=== PATIENT | female | born 1955 | race Caucasian/White ===

== ENCOUNTER → 2017-09-18 | Outpatient (CLI) | payer MEDICARE, BC ==
[~2017-09-18] MED LIST: LIDOCAINE 1% MDV 20ML VIAL As Ordered ONE
--- NOTE | 2017-09-18 17:34 | REP ---
ULTRASOUND GUIDED LEFT THYROID BIOPSY: The procedure was performed under the direct supervision of Dr. Noble. The risks and benefits of the procedure were explained to the patient and informed consent was obtained. The left thyroid nodule was localized using ultrasound guidance. The skin was prepped and draped in a sterile fashion. 1% Xylocaine was used as a local anesthetic. Using ultrasound guidance four fine-needle aspirations were obtained using a 25-gauge needles. The patient tolerated the procedure well and there were no immediate complications. After the appropriate amount of monitored convalescence the patient was discharged from the department. Reviewed by MATT Lugo 09/20/2017 04:32 PEdited and Signed by Ryne Noble MD 09/20/2017 04:51 P
== END ==
LOC: M RADPRO 12:05
PROVIDERS: ATTEND Otolaryngology
DX: E04.2 Nontoxic multinodular goiter (principal); R05 Cough; R49.0 Dysphonia; K21.9 Gastro-esophageal reflux disease without esophagitis; J45.901 Unspecified asthma with (acute) exacerbation; J47.9 Bronchiectasis, uncomplicated; J34.89 Other specified disorders of nose and nasal sinuses; R06.00 Dyspnea, unspecified; Z79.818 Long term (current) use of other agents affecting estrogen receptors and estrogen levels; Z79.899 Other long term (current) drug therapy; Z88.0 Allergy status to penicillin; Z88.1 Allergy status to other antibiotic agents; Z88.8 Allergy status to other drugs, medicaments and biological substances

== ENCOUNTER → 2018-04-23 | Outpatient (CLI) | payer MEDICARE, BC ==
[~2018-04-23] MED LIST changes: +LIDOCAINE 1% MDV 20ML VIAL As Ordered; -LIDOCAINE 1% MDV 20ML VIAL As Ordered ONE
== END ==
LOC: M RADPRO 10:44
DX: R94.5 Abnormal results of liver function studies (principal); Z79.899 Other long term (current) drug therapy; Z88.1 Allergy status to other antibiotic agents; Z88.5 Allergy status to narcotic agent; Z88.8 Allergy status to other drugs, medicaments and biological substances
CPT/HCPCS: 47000

== ENCOUNTER → 2018-10-01 | Outpatient (CLI) | payer MEDICARE, BC | LOC: M RAD 12:14 | DX: E04.2 Nontoxic multinodular goiter (principal) | CPT/HCPCS: 76536 ==

== ENCOUNTER → 2018-10-30 | Outpatient (REF) | payer MEDICARE, BC ==
[2018-10-30 12:28] LABS: BASO # 0.1 10^3/uL (0.0-0.2); BASO % 0.9 % (0.0-1.0); EOS # 0.3 10^3/uL (0.0-0.50); EOS % 3.2 % (0.0-3.0); HEMOGLOBIN 13.1 g/dl (12.0-15.5); LYMPH # 1.4 10^3/uL (1.5-4.5); LYMPH % 16.6 % (24.0-44.0); MEAN CORPUSCULAR HEMOGLOBIN 30.1 pg (27.0-33.0); MEAN CORPUSCULAR HGB CONC 32.8 g/dl (32.0-36.5); MONO # 0.8 10^3/uL (0.0-0.8); NEUTROPHILS # 5.6 10^3/uL (1.8-7.7); NEUTROPHILS % 68.8 % (36.0-66.0); PLATELET COUNT, AUTOMATED 280 10^3/uL (150-450); RED BLOOD COUNT 4.35 10^6/uL (4.00-5.40); WHITE BLOOD COUNT 8.1 10^3/uL (4.0-10.0)
[2018-10-30 13:12] LABS: ALBUMIN 3.5 GM/DL (3.2-5.2); ALT/SGPT 44 U/L (12-78); BILIRUBIN,TOTAL 0.4 MG/DL (0.2-1.0); BLOOD UREA NITROGEN 16 MG/DL (7-18); C REACTIVE PROTEIN QUANTITATIV 1.75 MG/DL (0.00-0.30); CALCIUM LEVEL 9.3 MG/DL (8.8-10.2); CARBON DIOXIDE LEVEL 31 MEQ/L (21-32); CHLORIDE LEVEL 103 MEQ/L (98-107); GLOMERULAR FILTRATION RATE 59.8 (>45); GLUCOSE, FASTING 77 MG/DL (70-100); POTASSIUM SERUM 3.8 MEQ/L (3.5-5.1); RHEUMATOID FACTOR QUANT < 10.0 IU/ML (<15.0); SODIUM LEVEL 141 MEQ/L (136-145); TOTAL PROTEIN 6.7 GM/DL (6.4-8.2)
[2018-10-30 13:46] LABS: ERYTHROCYTE SEDIMENTATION RATE 56 mm/hr (0-30)
[2018-10-31 09:55] LABS: HEPATITIS B SURFACE ANTIGEN NEGATIVE (NEGATIVE)
[2018-10-31 10:23] LABS: HEPATITIS C VIRUS ABY INDEX 0.1 INDEX (<0.8)
[2018-11-01 00:07] LABS: ANA (HEP2) Negative (.); CYCLIC CITRULLINATED PEPTIDE 7 units (0-19)
== END ==
LOC: M SFHCPLAZ 10:38
PROVIDERS: ATTEND Internal Medicine Rheumatology
DX: M06.9 Rheumatoid arthritis, unspecified (principal)

== ENCOUNTER → 2019-01-29 | Outpatient (REF) | payer MEDICARE, BC ==
[2019-01-29 12:34] LABS: BASO # 0.1 10^3/uL (0.0-0.2); BASO % 0.8 % (0.0-1.0); EOS # 0.2 10^3/uL (0.0-0.50); EOS % 2.4 % (0.0-3.0); LYMPH # 1.4 10^3/uL (1.5-4.5); LYMPH % 17.3 % (24.0-44.0); MEAN CORPUSCULAR HEMOGLOBIN 29.6 pg (27.0-33.0); MEAN CORPUSCULAR HGB CONC 31.6 g/dl (32.0-36.5); MEAN CORPUSCULAR VOLUME 93.6 fl (80.0-96.0); MONO # 0.6 10^3/uL (0.0-0.8); MONO % 7.8 % (0.0-5.0); NEUTROPHILS # 5.5 10^3/uL (1.8-7.7); NEUTROPHILS % 71.2 % (36.0-66.0); PLATELET COUNT, AUTOMATED 292 10^3/uL (150-450); RED BLOOD COUNT 4.06 10^6/uL (4.00-5.40); WHITE BLOOD COUNT 7.8 10^3/uL (4.0-10.0)
[2019-01-29 12:53] LABS: ALBUMIN 3.4 GM/DL (3.2-5.2); ALT/SGPT 40 U/L (12-78); BILIRUBIN,TOTAL 0.3 MG/DL (0.2-1.0); BLOOD UREA NITROGEN 19 MG/DL (7-18); C REACTIVE PROTEIN QUANTITATIV 0.57 MG/DL (0.00-0.30); CALCIUM LEVEL 9.5 MG/DL (8.8-10.2); CARBON DIOXIDE LEVEL 33 MEQ/L (21-32); CHLORIDE LEVEL 106 MEQ/L (98-107); CREATININE FOR GFR 0.96 MG/DL (0.55-1.30); GLOMERULAR FILTRATION RATE > 60.0 (>45); GLUCOSE, FASTING 81 MG/DL (70-100); POTASSIUM SERUM 3.9 MEQ/L (3.5-5.1); SODIUM LEVEL 143 MEQ/L (136-145); TOTAL PROTEIN 6.1 GM/DL (6.4-8.2)
[2019-01-29 13:09] LABS: ERYTHROCYTE SEDIMENTATION RATE 38 mm/hr (0-30)
== END ==
LOC: M SFHCPLAZ 09:29
PROVIDERS: ATTEND Internal Medicine Rheumatology
DX: M06.9 Rheumatoid arthritis, unspecified (principal)
CPT/HCPCS: 36415; 80053; 85025; 85652; 86140; G0463

== ENCOUNTER → 2019-05-16 | Outpatient (CLI) | payer MEDICARE, BC ==
--- NOTE | 2019-05-16 13:17 | REP ---
THYROID ULTRASOUND: Real-time sonographic evaluation of the thyroid performed. Comparison is made with prior study of 10/01/2018. The right lobe of the thyroid measures 3.6 x 1.5 x 1.2 cm and left lobe 4.8 x 1.7 x 1.9 cm. There is diffuse heterogeneous nodular pattern to the parenchyma. Once again, there is a complex nodule in the mid right lobe 1 cm in diameter. A 5 mm cyst seen in the right lower pole. Complex nodule near the left isthmus measures 1.2 x 0.8 x 0.6 cm. There is adjacent complex nodule in the left mid aspect 7 x 10 x 6 mm. A complex nodule in the left lower pole is again seen 1.7 x 1.2 x 0.9 cm. These findings are essentially unchanged. IMPRESSION: Stable examination with no change in bilateral nodules compared to the 10/01/2018 exam. Electronically Signed by Tanner Champion MD 05/16/2019 02:01 P
== END ==
LOC: M RAD 10:25
PROVIDERS: ATTEND Otolaryngology
DX: E04.2 Nontoxic multinodular goiter (principal)

== ENCOUNTER → 2019-11-20 | Outpatient (REF) | payer MEDICARE, BC ==
[2019-11-20 13:06] LABS: BASO % 0.6 % (0.0-1.0); EOS # 0.4 10^3/uL (0.0-0.5); EOS % 5.9 % (0.0-3.0); HEMATOCRIT 37.6 % (36.0-47.0); HEMOGLOBIN 11.6 g/dl (12.0-15.5); LYMPH # 0.7 10^3/uL (1.5-5.0); LYMPH % 9.6 % (24.0-44.0); MEAN CORPUSCULAR HEMOGLOBIN 28.4 pg (27.0-33.0); MEAN CORPUSCULAR HGB CONC 30.9 g/dl (32.0-36.5); MEAN CORPUSCULAR VOLUME 92.2 fl (80.0-96.0); MONO # 1.2 10^3/uL (0.0-0.8); MONO % 17.6 % (0.0-5.0); NEUTROPHILS # 4.5 10^3/uL (1.5-8.5); NEUTROPHILS % 65.9 % (36.0-66.0); PLATELET COUNT, AUTOMATED 296 10^3/uL (150-450); RED BLOOD COUNT 4.08 10^6/uL (4.00-5.40); WHITE BLOOD COUNT 6.8 10^3/uL (4.0-10.0)
[2019-11-20 13:35] LABS: ALBUMIN 2.8 GM/DL (3.2-5.2); ALT/SGPT 20 U/L (12-78); BILIRUBIN,TOTAL 0.4 MG/DL (0.2-1.0); BLOOD UREA NITROGEN 9 MG/DL (7-18); C REACTIVE PROTEIN QUANTITATIV 7.49 MG/DL (0.00-0.30); CALCIUM LEVEL 8.6 MG/DL (8.8-10.2); CARBON DIOXIDE LEVEL 31 MEQ/L (21-32); CHLORIDE LEVEL 103 MEQ/L (98-107); CREATININE FOR GFR 0.82 MG/DL (0.55-1.30); GLOMERULAR FILTRATION RATE > 60.0 (>45); GLUCOSE, FASTING 84 MG/DL (70-100); POTASSIUM SERUM 3.9 MEQ/L (3.5-5.1); SODIUM LEVEL 139 MEQ/L (136-145); TOTAL PROTEIN 6.1 GM/DL (6.4-8.2)
[2019-11-20 13:43] LABS: ERYTHROCYTE SEDIMENTATION RATE 65 mm/hr (0-30)
== END ==
LOC: M SFHCRHEU 10:12
PROVIDERS: ATTEND Internal Medicine
DX: M06.09 Rheumatoid arthritis without rheumatoid factor, multiple sites (principal)
CPT/HCPCS: 36415; 80053; 85025; 85652; 86140; G0463

== ENCOUNTER → 2019-11-22 | Outpatient (CLI) | payer MEDICARE, BC ==
--- NOTE | 2019-11-25 13:35 | REP ---
Whole breast sonography left breast. History: 6 month followup left breast findings on mammogram May 22, 2019. The report of the mammogram describes a tiny nodular opacity with well-circumscribed margins in the upper outer quadrant of the left breast, BIRADS 3 probably benign three-dimensional whole breast ultrasound recommended. Whole breast sonographic findings: The left breast is examined sonographically. Heterogeneous fibroglandular background echotexture is seen. Multiple cystic structures are seen. No sonographically suspicious abnormality is observed. No acoustic shadowing, mass or architectural distortion is seen. There are anechoic structures consistent with simple cysts located and measured as follows: 2 o'clock, 3 cm from the nipple, 7 mm in greatest diameter 3 o'clock, 1 cm from the nipple, 4 mm 3 o'clock, 2 cm from the nipple, 8 mm 9 o'clock, 6 mm from the nipple, 4 mm 11 o'clock, 3 cm from the nipple, 5 mm Also noted is a normal-appearing lymph node in the axilla. Impression: BIRADS/ACR category zero left breast ultrasound , incomplete. Additional imaging and/or prior images needed. It is not possible to identify which, if any, of the above small cysts is the sonographic correlate to the small nodule visible mammographically. Accordingly, followup left mammography recommended.
== END ==
LOC: M WHC 11:49
PROVIDERS: ATTEND Obstetrics & Gynecology
DX: N64.89 Other specified disorders of breast (principal); R92.8 Other abnormal and inconclusive findings on diagnostic imaging of breast

== ENCOUNTER → 2019-11-22 | Outpatient (CLI) | payer MEDICARE, BC | LOC: M RAD 09:24 | PROVIDERS: ATTEND Obstetrics & Gynecology | DX: R92.8 Other abnormal and inconclusive findings on diagnostic imaging of breast (principal) ==

== ENCOUNTER → 2020-03-20 | Outpatient (REF) | payer MEDICARE, BC ==
[2020-03-20 15:51] LABS: ALBUMIN 3.4 GM/DL (3.2-5.2); BILIRUBIN,TOTAL 0.3 MG/DL (0.2-1.0); GLOMERULAR FILTRATION RATE 59.6 (>45); POTASSIUM SERUM 3.9 MEQ/L (3.5-5.1); TOTAL PROTEIN 6.6 GM/DL (6.4-8.2)
== END ==
LOC: M SFHCRHEU 09:10
PROVIDERS: ATTEND Internal Medicine
DX: R79.89 Other specified abnormal findings of blood chemistry (principal)
CPT/HCPCS: 36415; 80053; G0463

== ENCOUNTER → 2020-05-13 | Outpatient (CLI) | payer MEDICARE, BC | LOC: M CARPUL 13:34 | PROVIDERS: ATTEND Internal Medicine Pulmonary Disease | DX: J45.40 Moderate persistent asthma, uncomplicated (principal); J47.9 Bronchiectasis, uncomplicated ==

== ENCOUNTER → 2020-05-13 | Outpatient (CLI) | payer MEDICARE, BC ==
--- NOTE | 2020-05-13 14:21 | REP ---
THYROID SONOGRAPHY: HISTORY: Nontoxic multinodular goiter. COMPARISON STUDY: May 16, 2019. FINDINGS: The thyroid isthmus is 0.5 cm thick. Right lobe dimensions today are 4.3 x 1.4 x 1.7 cm. The left lobe measures 5.1 x 1.6 x 2.0 cm. In the inferior pole left thyroid lobe, there is a 1.7 x 1.6 x 1.1 cm hypoechoic nodule which is felt to be essentially unchanged. There are two smaller sub-centimeter nodules in the mid and upper pole on the left also unchanged. There is a small focal calcification anteriorly in the left lobe. On the right there are three small subcentimeter nodules. IMPRESSION: Multinodular thyroid. No significant change from comparison study.
== END ==
LOC: M PLAIMG 12:10
PROVIDERS: ATTEND Otolaryngology
DX: E04.2 Nontoxic multinodular goiter (principal)

== ENCOUNTER → 2020-05-25 | Outpatient (CLI) | payer MEDICARE, BC ==
--- NOTE | 2020-06-15 15:01 | REPMRS ---
Patient History The patient states she had a clinical breast exam in 02/2020. Patient is nulliparous. Family history of breast cancer at age 50 or over in mother, breast cancer at age 50 or over in maternal aunt, breast cancer at age 50 or over in maternal aunt, breast cancer at age 50 or over in niece, ovarian cancer at age 50 or over in maternal aunt, prostate cancer at age 50 or over in father, colorectal cancer at age 50 or over in maternal uncle. No Hormone Replacement Therapy Digital Woman Screen Mammo: May 25, 2020 - Exam #: [id number] Bilateral CC and MLO view(s) were taken. Technologist: Helena Steiner, Technologist Prior study comparison: May 22, 2019, bilateral digital woman screen mammo, performed at [facility]. April 27, 2018, bilateral digital woman screen mammo, performed at [facility]. April 13, 2017, bilateral digital woman screen mammo, performed at [facility]. FINDINGS: The breast tissue is heterogeneously dense. This may lower the sensitivity of mammography. There is a moderate amount of heterogeneously dense fibroglandular tissue which is fairly symmetric. There is no interval development of dominant mass, architectural distortion, or grouped microcalcification typical of malignancy. There has been no change in the appearance of the mammogram from the prior studies. 3-D tomosynthesis shows no additional findings. Report was delayed due to a protracted computer network disruption experienced by this facility. Assessment: BI-RADS/ACR category 1 mammogram. Negative Mammogram. Recommendation Routine screening mammogram of both breasts in 1 year (for women over age 40). This patient's Lifetime Breast Cancer RIsk is estimated at 18.0 %. This mammogram was interpreted with the aid of an FDA-approved computer-aided dectection system. Electronically Signed By: Narciso Noble MD 06/15/20 2066
== END ==
LOC: M WHC 05:38
PROVIDERS: ATTEND Surgery
DX: Z12.31 Encounter for screening mammogram for malignant neoplasm of breast (principal); Z15.01 Genetic susceptibility to malignant neoplasm of breast; Z80.3 Family history of malignant neoplasm of breast

== ENCOUNTER → 2021-05-06 | Outpatient (CLI) | payer MEDICARE, BC ==
--- NOTE | 2021-05-06 14:18 | REP ---
INDICATION: MULTI NODULAR GOITOR. COMPARISON: Comparison study May 13, 2020.. TECHNIQUE: High-resolution bilateral thyroid sonography. FINDINGS: Thyroid isthmus today is 0.7 cm thick. Right lobe dimensions are 4.7 x 1.4 x 1.9 cm. The left thyroid lobe measures 4.6 x 1.7 x 2.4 cm. Thyroid glandular texture is heterogeneous. In the left lobe it appears today that nearly half of the lower pole of the left lobe is a heterogeneous solid nodule dimensions 2.8 x 2.0 by 1.1 cm. This appears to have increased in size somewhat since the prior study when it measured 1.7 cm in greatest diameter. There are several subcentimeter nodules in the right lobe and another subcentimeter nodule is seen in the upper pole on the left. There is a focal calcification in the parenchyma of the upper pole left thyroid. These findings are unchanged. IMPRESSION: Multinodular thyroid. The largest nodule in the lower pole on the left appears to have increased in size. <Electronically signed by Narciso Noble > 05/06/21 0632
== END ==
LOC: M RAD 11:34
PROVIDERS: ATTEND Otolaryngology
DX: E04.2 Nontoxic multinodular goiter (principal)

== ENCOUNTER → 2021-06-02 | Outpatient (CLI) | payer MEDICARE, BC ==
--- NOTE | 2021-06-02 15:37 | REPMRS ---
Patient History The patient states she had a clinical breast exam in July 2020. Family history of breast cancer at age 50 or over in mother, breast cancer at age 50 or over in maternal aunt, breast cancer at age 50 or over in maternal aunt, breast cancer at age 50 or over in niece, ovarian cancer at age 50 or over in maternal aunt, prostate cancer at age 50 or over in father, colorectal cancer at age 50 or over in maternal uncle. No Hormone Replacement Therapy Patient states no breast complaints today. Patient has signed MRS History Sheet. Digital Woman Screen Mammo: June 02, 2021 - Exam #: [id number] Bilateral CC and MLO view(s) were taken. Technologist: Rosalind Marquez Technologist Prior study comparison: May 25, 2020, bilateral digital woman screen mammo performed at [facility]. May 22, 2019, bilateral digital woman screen mammo, performed at [facility]. April 27, 2018, bilateral digital woman screen mammo, performed at [facility]. FINDINGS: There are scattered fibroglandular densities. The Volpara volumetric breast density category is: B. There is a moderate amount of residual fibroglandular tissue which is fairly symmetric. There is no interval development of dominant mass, architectural distortion, or grouped microcalcification typical of malignancy. There has been no change in the appearance of the mammogram from the prior studies. 3-D tomosynthesis shows no additional findings. Assessment: BI-RADS/ACR category 1 mammogram. Negative Mammogram. Recommendation Routine screening mammogram of both breasts in 1 year (for women over age 40). This patient's [facility] Lifetime Breast Cancer RIsk is estimated at 17.2 %. This mammogram was interpreted with the aid of an FDA-approved computer-aided dectection system. Electronically Signed By: Narciso Noble MD 06/02/21 0952
== END ==
LOC: M WHC 08:19
PROVIDERS: ATTEND Obstetrics & Gynecology
DX: Z12.31 Encounter for screening mammogram for malignant neoplasm of breast (principal)

== ENCOUNTER → 2021-06-25 | Outpatient (CLI) | payer MEDICARE, BC ==
[~2021-06-25] MED LIST changes: +ADVA230A INH; +CLAR10CA3 PO; +FOLI1TAB11 PO; +HYDR200T3 PO; -LIDOCAINE 1% MDV 20ML VIAL As Ordered; +LOSA50TA5 PO; +METH2.5T48 PO; +PROZ20CA11 PO
[2021-06-25 13:08] VITALS: BP 139/80
--- NOTE | 2021-06-25 17:03 | REP ---
INDICATION: LT THYROID NODULE. COMPARISON: None. TECHNIQUE: The procedure was performed under the direct supervision of Dr. Champion. The patient has a history of a 2.8 x 2 x 1.1 cm heterogeneous solid nodule in the left lobe of the thyroid seen on a previous ultrasound dated 05/06/2021. The risks and benefits of the procedure were explained to the patient and informed consent was obtained. The left thyroid nodule was localized using ultrasound guidance. The skin was prepped and draped in a sterile fashion. 4 mL of 1% lidocaine was used as a local anesthetic. Using ultrasound guidance 4 fine-needle aspirations were obtained using 25 gauge needles. Estimated blood loss: Less than 1 mL The patient tolerated the procedure well and there were no immediate complications. After the appropriate amount to monitor convalescence the patient was discharged from the department. FINDINGS: None IMPRESSION: Ultrasound-guided left thyroid biopsy <Electronically signed by Williams Piedra > 06/25/21 1616 <Electronically signed by Tanner Champion > 06/25/21 0839
== END ==
LOC: M IRPRO 11:29
PROVIDERS: ATTEND Otolaryngology
DX: D34 Benign neoplasm of thyroid gland (principal)

== ENCOUNTER → 2021-11-30 | Outpatient (CLI) | payer MEDICARE, BC | LOC: M RAD 13:06 | PROVIDERS: ATTEND Otolaryngology | DX: E04.1 Nontoxic single thyroid nodule (principal) ==

== ENCOUNTER → 2022-05-24 | Outpatient (CLI) | payer MEDICARE, BC | LOC: M WHC 13:39 | PROVIDERS: ATTEND Otolaryngology | DX: E04.1 Nontoxic single thyroid nodule (principal) ==

== ENCOUNTER → 2022-08-05 | Outpatient (CLI) | payer MEDICARE, BC | LOC: M WHC 09:28 | PROVIDERS: ATTEND Nurse Practitioner Family | DX: Z12.31 Encounter for screening mammogram for malignant neoplasm of breast (principal) ==

== ENCOUNTER → 2023-05-23 | Outpatient (REF) | payer MEDICARE, BC ==
[~2023-05-23] MED LIST changes: -HYDR200T3 PO; +HYDR200T46 PO
[2023-05-23 12:44] LABS: APPEARANCE, URINE CLEAR (CLEAR); BACTERIA, URINE AUTO NEGATIVE (NEGATIVE); BILIRUBIN, URINE AUTO NEGATIVE (NEGATIVE); BLOOD, URINE BLOOD NEGATIVE (NEGATIVE); COLOR, URINE YELLOW (YELLOW); GLUCOSE, URINE (UA) AUTO NEGATIVE (NEGATIVE); KETONE, URINE AUTO NEGATIVE (NEGATIVE); LEUKOCYTE ESTERASE, URINE AUTO TRACE (NEGATIVE); NITRITE, URINE AUTO NEGATIVE (NEGATIVE); PROTEIN, URINE AUTO NEGATIVE (NEGATIVE); RBC, URINE AUTO 1 /HPF (0-3); SPECIFIC GRAVITY URINE AUTO 1.008 (1.002-1.035); SQUAMOUS EPITHELIAL CELL UR AU 0 /HPF (0-6); UROBILINOGEN, URINE AUTO 0.2 mg/dL (0.0-2.0); WBC, URINE AUTO 1 /HPF (0-3)
[2023-05-23 12:50] LABS: BASO # 0.1 10^3/uL (0.0-0.2); BASO % 1.4 % (0.0-1.0); EOS # 0.4 10^3/uL (0.0-0.5); EOS % 5.9 % (0.0-3.0); HEMATOCRIT 40.6 % (36.0-47.0); HEMOGLOBIN 13.1 g/dl (12.0-15.5); LYMPH # 1.2 10^3/uL (1.5-5.0); MEAN CORPUSCULAR HEMOGLOBIN 29.6 pg (27.0-33.0); MEAN CORPUSCULAR HGB CONC 32.3 g/dl (32.0-36.5); MEAN CORPUSCULAR VOLUME 91.9 fl (80.0-96.0); MONO # 0.6 10^3/uL (0.0-0.8); MONO % 9.7 % (2.0-8.0); NEUTROPHILS % 63.7 % (36.0-66.0); PLATELET COUNT, AUTOMATED 234 10^3/uL (150-450); RED BLOOD COUNT 4.42 10^6/uL (4.00-5.40); WHITE BLOOD COUNT 6.3 10^3/uL (4.0-10.0)
[2023-05-23 13:10] LABS: ERYTHROCYTE SEDIMENTATION RATE 65 mm/hr (0-30)
[2023-05-23 13:12] LABS: CREATININE,RANDOM URINE 48.1 MG/DL
[2023-05-23 13:14] LABS: TOTAL PROTEIN,RANDOM URINE < 6.0 MG/DL (0.0-14.0)
[2023-05-23 13:15] LABS: ALBUMIN 3.6 G/DL (3.2-5.2); ALKALINE PHOSPHATASE 82 U/L (46-116); ALT/SGPT 35 U/L (7.0-40); AST/SGOT 49 U/L (<34); BILIRUBIN,TOTAL 0.5 MG/DL (0.3-1.2); BLOOD UREA NITROGEN 13 MG/DL (9-23); CALCIUM LEVEL 9.3 MG/DL (8.3-10.6); CARBON DIOXIDE LEVEL 28 MMOL/L (20-31); CHLORIDE LEVEL 104 MMOL/L (98-107); COMPLEMENT C3 147.6 MG/DL (90.0-170.0); COMPLEMENT C4 20.6 MG/DL (12-36); GLOMERULAR FILTRATION RATE > 60.0 (>45); GLUCOSE, FASTING 80 MG/DL (74-106); IMMUNOGLOBULIN A 157.5 MG/DL (40-350); IMMUNOGLOBULIN G 943 MG/DL (650-1600); POTASSIUM SERUM 3.6 MMOL/L (3.5-5.1); SODIUM LEVEL 143 MMOL/L (136-145); TOTAL PROTEIN 6.7 G/DL (5.7-8.2)
[2023-05-23 13:47] LABS: HEPATITIS B CORE ANTIBODY IGM NEGATIVE (NEGATIVE); HEPATITIS C VIRUS ABY INDEX 0.12 INDEX (<0.8)
== END ==
LOC: M SFHCRHEU 09:16
PROVIDERS: ATTEND Internal Medicine Rheumatology
DX: M06.09 Rheumatoid arthritis without rheumatoid factor, multiple sites (principal); Z79.899 Other long term (current) drug therapy; H04.123 Dry eye syndrome of bilateral lacrimal glands; R21 Rash and other nonspecific skin eruption; M79.89 Other specified soft tissue disorders

== ENCOUNTER → 2023-06-06 | Outpatient (CLI) | payer MEDICARE, BC | LOC: M RAD 09:59 | PROVIDERS: ATTEND Otolaryngology | DX: E04.1 Nontoxic single thyroid nodule (principal) ==

== ENCOUNTER → 2023-08-07 | Outpatient (CLI) | payer MEDICARE, BC ==
[~2023-08-07] MED LIST changes: +LIDOCAINE 1% MDV 20ML VIAL As Ordered ONE
[2023-08-07 13:03] VITALS: TEMP 97.7
[2023-08-07 14:24] VITALS: BP 135/75; O2SAT 98
== END ==
LOC: M IRPRO 12:07
PROVIDERS: ATTEND Otolaryngology
DX: E04.2 Nontoxic multinodular goiter (principal)

== ENCOUNTER → 2023-08-18 | Outpatient (REF) | payer MEDICARE, BC ==
[~2023-08-18] MED LIST changes: -LIDOCAINE 1% MDV 20ML VIAL As Ordered ONE
== END ==
LOC: M SFHCRHEU 09:32
PROVIDERS: ATTEND Internal Medicine Rheumatology
DX: M06.09 Rheumatoid arthritis without rheumatoid factor, multiple sites (principal); Z79.899 Other long term (current) drug therapy; H04.123 Dry eye syndrome of bilateral lacrimal glands; R21 Rash and other nonspecific skin eruption; M79.89 Other specified soft tissue disorders

== ENCOUNTER → 2023-11-24 | Outpatient (CLI) | payer MEDICARE, BC | LOC: M PLAIMG 11:00 | PROVIDERS: ATTEND Internal Medicine Pulmonary Disease | DX: R91.8 Other nonspecific abnormal finding of lung field (principal) ==

== ENCOUNTER 2023-12-06 06:57 | Day surgery (SDC) | payer MEDICARE, BC ==
[~2023-12-06] VITALS: Ht 167.6 cm; Wt 77.2 kg
[~2023-12-06 06:57] MED LIST changes: +ALBU8.5H INH; +CENT1TAB9 PO; +GABA-282 PO; +PRIL20TA2 PO; +VITA100017 PO; +VITA500C24 PO; +[UNRECOGNIZED DRUG - CODE] PO
[2023-12-06] MEDS: LR 1,000 ML IV SCH (07:42)
[2023-12-06] MEDS ORDERED: propofoL 200 MG/20 ML VIAL As Ordered ONE (08:06)
[2023-12-06] MEDS ORDERED: ONDANSETRON 4MG 2ML VIAL As Ordered ONE (08:06)
[2023-12-06] MEDS ORDERED: LIDOCAINE 2% 100MG/5ML SDV (FOR ANES.) As Ordered ONE (08:06)
[2023-12-06] MEDS ORDERED: ROCURONIUM BROMIDE 50MG/5ML VIAL As Ordered ONE (08:06)
[2023-12-06] MEDS ORDERED: SUGAMMADEX SODIUM 500 MG/5 ML VIAL (BRIDION) As Ordered ONE (08:06)
[2023-12-06] MEDS ORDERED: fentaNYL 100 MCG/2 ML INJECTION As Ordered ONE (08:09)
[2023-12-06] MEDS ORDERED: MIDAZOLAM INJ 2MG/2ML VIAL As Ordered ONE (08:10)
[2023-12-06] MEDS: ALBUTEROL SULFATE 2.5MG/0.5ML INH NEB SOLN INH ONE (08:21)
[2023-12-06] MEDS: LIDOCAINE PRES-FREE 2% 10ML AMP INH ONE (08:21)
[2023-12-06] MEDS: CETACAINE SPRAY 5GM As Ordered ONE (09:00)
[2023-12-06] MEDS ORDERED: ACETAMINOPHEN 1000MG 100ML IV BAG As Ordered ONE (09:04)
[2023-12-06] MEDS ORDERED: EPINEPHrine 1MG/10ML SYRINGE 1.5IN As Ordered ONE (09:04)
[2023-12-06] MEDS ORDERED: fentaNYL 100 MCG/2 ML INJECTION IV PRN (09:50)
[2023-12-06] MEDS ORDERED: oxyCODONE 5MG TAB PO PRN (09:50)
[2023-12-06] MEDS ORDERED: ONDANSETRON 4MG 2ML VIAL IV PRN (09:50)
[2023-12-06 11:00] VITALS: BP 120/75; TEMP 98; O2SAT 96
== END 2023-12-06 11:10 | disposition home or self-care (01) ==
LOC: M SDC 06:57
PROVIDERS: ATTEND Internal Medicine Pulmonary Disease
DX: J98.4 Other disorders of lung (principal); I10 Essential (primary) hypertension; I31.39 Other pericardial effusion (noninflammatory); E03.9 Hypothyroidism, unspecified; E04.1 Nontoxic single thyroid nodule; K44.9 Diaphragmatic hernia without obstruction or gangrene; K21.9 Gastro-esophageal reflux disease without esophagitis; J44.9 Chronic obstructive pulmonary disease, unspecified; Z79.51 Long term (current) use of inhaled steroids; Z79.899 Other long term (current) drug therapy; Z88.0 Allergy status to penicillin; Z88.2 Allergy status to sulfonamides; Z88.1 Allergy status to other antibiotic agents; Z88.8 Allergy status to other drugs, medicaments and biological substances
CPT/HCPCS: 31627; 31628; 31654; 71045; 76000; 87070; 87077; 87102; 87116; 87184; 87186; 87205; 87206; 88108; 88305; 88313; J0131; J0171; J1100; J2250; J2405; J3010; S2900

== ENCOUNTER → 2024-01-24 | Outpatient (CLI) | payer MEDICARE, BC | LOC: M RAD 13:39 | PROVIDERS: ATTEND Otolaryngology | DX: E04.2 Nontoxic multinodular goiter (principal) ==

== ENCOUNTER → 2024-01-26 | Outpatient (REF) | payer MEDICARE, BC ==
[2024-01-26 12:28] LABS: BASO # 0.1 10^3/uL (0.0-0.2); EOS # 0.3 10^3/uL (0.0-0.5); EOS % 4.2 % (0.0-3.0); HEMATOCRIT 39.9 % (36.0-47.0); HEMOGLOBIN 12.9 g/dl (12.0-15.5); LYMPH # 1.1 10^3/uL (1.5-5.0); LYMPH % 19.1 % (24.0-44.0); MEAN CORPUSCULAR HEMOGLOBIN 29.9 pg (27.0-33.0); MEAN CORPUSCULAR HGB CONC 32.3 g/dl (32.0-36.5); MEAN CORPUSCULAR VOLUME 92.4 fl (80.0-96.0); MONO # 0.7 10^3/uL (0.0-0.8); MONO % 11.3 % (2.0-8.0); NEUTROPHILS # 3.8 10^3/uL (1.5-8.5); NEUTROPHILS % 63.9 % (36.0-66.0); PLATELET COUNT, AUTOMATED 214 10^3/uL (150-450); RED BLOOD COUNT 4.32 10^6/uL (4.00-5.40); WHITE BLOOD COUNT 5.9 10^3/uL (4.0-10.0)
[2024-01-26 12:30] LABS: ALBUMIN 3.4 G/DL (3.2-5.2); ALKALINE PHOSPHATASE 72 U/L (46-116); ALT/SGPT 34 U/L (7.0-40); AST/SGOT 44 U/L (<34); BILIRUBIN,TOTAL 0.5 MG/DL (0.3-1.2); BLOOD UREA NITROGEN 22 MG/DL (9-23); CALCIUM LEVEL 9.3 MG/DL (8.3-10.6); CARBON DIOXIDE LEVEL 31 MMOL/L (20-31); CHLORIDE LEVEL 104 MMOL/L (98-107); CREATININE FOR GFR 0.95 MG/DL (0.55-1.30); GLOMERULAR FILTRATION RATE > 60.0 (>45); GLUCOSE, FASTING 93 MG/DL (74-106); POTASSIUM SERUM 3.7 MMOL/L (3.5-5.1); SODIUM LEVEL 141 MMOL/L (136-145); TOTAL PROTEIN 6.2 G/DL (5.7-8.2)
[2024-01-26 12:43] LABS: ERYTHROCYTE SEDIMENTATION RATE 55 mm/hr (0-30)
== END ==
LOC: M SFHCRHEU 10:12
PROVIDERS: ATTEND Internal Medicine Rheumatology
DX: M06.09 Rheumatoid arthritis without rheumatoid factor, multiple sites (principal); Z79.899 Other long term (current) drug therapy; H04.123 Dry eye syndrome of bilateral lacrimal glands; R21 Rash and other nonspecific skin eruption; M79.89 Other specified soft tissue disorders

== ENCOUNTER → 2024-04-10 | Outpatient (CLI) | payer MEDICARE, BC | LOC: M RAD 08:56 | PROVIDERS: ATTEND Internal Medicine Pulmonary Disease | DX: R91.8 Other nonspecific abnormal finding of lung field (principal) ==

== ENCOUNTER → 2024-04-30 | Outpatient (REF) | payer MEDICARE, BC | LOC: M SFHCRHEU 09:25 | PROVIDERS: ATTEND Internal Medicine Rheumatology | DX: M06.09 Rheumatoid arthritis without rheumatoid factor, multiple sites (principal) ==

== ENCOUNTER → 2024-08-28 | Outpatient (CLI) | payer MEDICARE, BC ==
[~2024-08-28] MED LIST changes: +GABA-1172 PO; -GABA-282 PO
== END ==
LOC: M RAD 14:25
PROVIDERS: ATTEND Otolaryngology
DX: E04.2 Nontoxic multinodular goiter (principal)

== ENCOUNTER → 2024-11-19 | Outpatient (REF) | payer MEDICARE, BC ==
[2024-11-19 14:57] LABS: BASO # 0.1 10^3/uL (0.0-0.2); BASO % 1.4 % (0.0-1.0); EOS # 0.3 10^3/uL (0.0-0.5); EOS % 4.6 % (0.0-3.0); HEMATOCRIT 38.4 % (36.0-47.0); HEMOGLOBIN 12.7 g/dl (12.0-15.5); LYMPH # 1.2 10^3/uL (1.5-5.0); LYMPH % 17.9 % (24.0-44.0); MEAN CORPUSCULAR HEMOGLOBIN 29.9 pg (27.0-33.0); MEAN CORPUSCULAR HGB CONC 33.1 g/dl (32.0-36.5); MEAN CORPUSCULAR VOLUME 90.4 fl (80.0-96.0); MONO # 0.8 10^3/uL (0.0-0.8); MONO % 12.7 % (2.0-8.0); NEUTROPHILS # 4.1 10^3/uL (1.5-8.5); NEUTROPHILS % 63.2 % (36.0-66.0); PLATELET COUNT, AUTOMATED 228 10^3/uL (150-450); RED BLOOD COUNT 4.25 10^6/uL (4.00-5.40); WHITE BLOOD COUNT 6.5 10^3/uL (4.0-10.0)
[2024-11-19 15:01] LABS: ALBUMIN 3.3 G/DL (3.2-5.2); BILIRUBIN,TOTAL 0.4 MG/DL (0.3-1.2); CALCIUM LEVEL 9.2 MG/DL (8.3-10.6); CREATININE FOR GFR 1.01 MG/DL (0.55-1.30); POTASSIUM SERUM 3.9 MMOL/L (3.5-5.1); TOTAL PROTEIN 6.5 G/DL (5.7-8.2)
[2024-11-19 15:07] LABS: ERYTHROCYTE SEDIMENTATION RATE 69 mm/hr (0-30)
== END ==
LOC: M SFHCRHEU 10:16
PROVIDERS: ATTEND Internal Medicine Rheumatology
DX: M06.09 Rheumatoid arthritis without rheumatoid factor, multiple sites (principal)

== ENCOUNTER → 2025-02-25 | Outpatient (CLI) | payer MEDICARE, BC | LOC: M RAD 15:31 | PROVIDERS: ATTEND Otolaryngology | DX: E04.2 Nontoxic multinodular goiter (principal) ==

== ENCOUNTER → 2025-07-10 | Outpatient (REF) | payer MEDICARE, BC ==
[~2025-07-10] MED LIST changes: -PROZ20CA11 PO; +PROZ20CA12 PO
== END ==
LOC: M SFHCRHEU 09:53
PROVIDERS: ATTEND Internal Medicine Rheumatology
DX: Z53.8 Procedure and treatment not carried out for other reasons (principal)